=== PATIENT | male | born 1980 | race Caucasian/White ===

== ENCOUNTER 2016-10-16 13:33 | Emergency (ER) | payer OTHER ==
[2016-10-16] MEDS ORDERED: KETOROLAC 60 MG/2 ML VIAL IM STA (14:47)
--- NOTE | 2016-10-16 15:04 | ED ---
General Adult HPI - General Chief complaint: Extremity Injury, Lower Stated complaint: R leg pain Source: patient, RN notes reviewed Mode of arrival: ambulatory Limitations: no limitations - History of Present Illness Initial comments: Chief complaint and history of present illness this is a 36-year-old male who reports he has so sciatic type distribution pain to the right leg starting in the right hip area radiating up over the right thigh into the medial aspect of the right lower leg. Patient reports this pain started a day after he did very heavy lifting. He does have a history of ruptured disks in the past. He has a MRI scheduled by his family physician. He is on muscle relaxant steroid. He has not taken the pain medication i.e. codeine prescribed. - Related Data Home Medications Medication Instructions Recorded Confirmed Cyclobenzaprine HCl 10 mg PO HS 10/16/16 10/16/16 Ketorolac Tromethamine 10 mg PO Q6HR PRN 10/16/16 10/16/16 buPROPion HCL [Wellbutrin XL] 150 mg PO DAILY 10/16/16 10/16/16 methylPREDNISolone Dose Pack See Taper PO DIRECTED 10/16/16 10/16/16 [Medrol Dose Pack] Allergies Allergy/AdvReac Type Severity Reaction Status Date / Time Sulfa (Sulfonamide Allergy Swelling Verified 10/16/16 14:10 Antibiotics) Review of Systems ROS Statement: Those systems with pertinent positive or pertinent negative responses have been documented in the HPI. Review of systems no complaint of headache or visual acuity changes no neck pain or mid back pain minimal low back pain but he does have right-sided sciatic distribution discomfort. No trouble with bowels. Able to control urine and stool. Pain comes and goes acutely. All systems reviewed. Past medical problems significant for ruptured disc first noticed over 20 years ago. 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 The patient has no family history of cancer. The patient has ALLERGIES to sulfa. He does not smoke. Drinks alcohol socially. ROS Other: All systems not noted in ROS Statement are negative. Past Medical History Past Medical History: No Reported History History of Any Multi-Drug Resistant Organisms: None Reported Past Surgical History: Tonsillectomy Additional Past Surgical History / Comment(s): eye Past Psychological History: Depression Smoking Status: Never smoker Past Alcohol Use History: Rare Past Drug Use History: None Reported General Exam - General Exam Comments Initial Comments: General: The patient is awake and alert, complains of recurring on-again off-again sharp pain right sciatic distribution. Vital signs show temperature 97.0 pulse 105 respiratory rate 18 pulse ox on percent room air blood pressure 145/90. Eye: Pupils are equal, t, extra-ocular movements are intact; there is normal conjunctiva bilaterally. No signs of icterus. Neck: The neck is supple, there is no tenderness Cardiovascular: No chest pain or palpitations. Respiratory: No difficulty breathing no complaint of shortness of breath. No wheezing. Gastrointestinal: Normal appetite no abdominal pain no problems with urinating or bowel movements. Able to control both. Back: Mild lumbar area discomfort. Musculoskeletal: Pain from the right hip up over the right thigh to the medial aspect of the right leg. Pain comes and goes sometimes acute. Currently mild. Neurological: Sciatic distribution of L2 3 4 ,, areas of pain that become acute. No bruising. No pain with active and passive range of motion at this time. Skin: Skin is warm and dry and no rashes or lesions are noted. Limitations: no limitations Course Vital Signs 10/16/16 14:06 Temperature 97.0 F L Pulse Rate 105 H Respiratory 18 Rate Blood Pressure 145/90 O2 Sat by Pulse 100 Oximetry Medical Decision Making - Medical Decision Making Medical decision-making. The patient does have an appointment for follow-up with an MRI. Encouraged to do this. He has several days left on his steroids. He states he has muscle relaxant but he did not take his pain medication. In emergency room was given a shot of Toradol 60 IM did not want anything else at this time. He denied any problems with aspirin or asthma problems. The patient does have pain medication at home up to codeine type he was advised to take that. And follow-up family physician. Return emergency room as needed. He is not having any difficulty with urinating a bowel movement he has full control. There is no foot drop. I did discuss with him reasons to return emergency room. Disposition Clinical Impression: Lumbar radiculopathy, acute Disposition: HOME SELF-CARE Condition: Fair Instructions: Lumbar Radiculopathy (ED) Additional Instructions: Continue and complete all medications as prescribed by your doctor. Take pain medication he prescribed. Use ice alternating with heat and gentle stretching hot tub or hot showers as needed follow-up for your MRI as previously arranged. Return should gently difficulty with foot drop or inability to release her urinary release her stool. Referrals: Lazaro Colón MD [Primary Care Provider] - 1-2 days Time of Disposition: 15:04
[2016-10-16 15:25] VITALS: BP 138/82; PULSE 89; RESP 13; TEMP 98.2
== END 2016-10-16 15:37 | disposition home or self-care (01) ==
LOC: EC 13:33
DX: M54.16 Radiculopathy, lumbar region (principal); F32.9 Major depressive disorder, single episode, unspecified; Z88.2 Allergy status to sulfonamides; Z79.899 Other long term (current) drug therapy
CPT/HCPCS: 99282; 96372; J1885

== ENCOUNTER → 2016-10-23 | Outpatient (CLI) | payer OTHER ==
--- NOTE | 2016-10-23 12:32 | MR ---
EXAMINATION TYPE: MR lumbar spine wo con DATE OF EXAM: 10/23/2016 11:55 AM COMPARISON: NONE HISTORY: Lumbago with sciatica, right side Multiplanar, MultiSpin echo imaging of the lumbar spine was performed. L1-L2: Normal disc appearance without desiccation. No herniation, protrusion or disc bulging. No ca nal stenosis is present. Foramina are patent bilaterally. L2-L3: Mild to moderate disc desiccation noted. Posterior disc bulge without disc herniation protrus ion or central stenosis. Foramina are patent bilaterally. L3-L4: Mild to moderate disc desiccation noted. . Posterior disc bulge without disc herniation protru gonzález or central stenosis. Foramina are patent bilaterally. L4-L5: Mild to moderate disc desiccation noted. Far lateral into the right disc herniation at the lev el of the neural foramen with severe foraminal encroachment . No evidence for central stenosis. L5-S1: Moderate disc desiccation. Left paracentral subligamentous disc herniation mildly effaces the ventral thecal sac. No evidence for central stenosis or lateral recess stenosis. Lumbar segments are intact. No paraspinal masses are identified. Conus medullaris has a normal appe arance. IMPRESSION: 1. Far lateral and to the right disc herniation at L4-5 strategically situated at the level of the ne ural foramen with severe narrowing identified. 2. Subligamentous disc herniation at L5-S1.
== END | disposition home or self-care (01) ==
LOC: RADMRIMAIN 11:02
PROVIDERS: ATTEND Family Medicine
DX: M99.73 Connective tissue and disc stenosis of intervertebral foramina of lumbar region (principal); M51.17 Intervertebral disc disorders with radiculopathy, lumbosacral region
CPT/HCPCS: 72148

== ENCOUNTER → 2020-06-14 | Outpatient (CLI) | payer BC ==
--- NOTE | 2020-06-14 12:06 | CT ---
EXAMINATION TYPE: CT abdomen pelvis w con DATE OF EXAM: 06/14/2020 COMPARISON: None HISTORY: Diverticulitis of large intestines with perforation, bowel resection [address] DLP: 1165.9 mGycm CONTRAST: CT scan of the abdomen and pelvis is performed with Oral Contrast and with IV Contrast, patient injec monet with 100 mL of Isovue 300. FINDINGS: LUNG BASES-: No visible nodule. No infiltrate. LIVER/GB: No calcified gallstones. No space occupying hepatic lesion. Biliary tree is of normal ca liber. PANCREAS: No inflammation. No distinct mass. SPLEEN: No splenic enlargement. No lesion seen. ADRENALS: No nodule. No thickening. KIDNEYS/BLADDER: No hydronephrosis. Nonobstructing calculus lower pole left kidney measuring 4 mm. N o distinct renal mass. Urinary bladder grossly unremarkable. BOWEL: Normal appendix. Postsurgical changes about the sigmoid colon with anastomosis seen. No active inflammatory process appreciated. No evidence for leak or abscess. Postsurgical changes about the lo w anterior abdominal wall. No evidence for pneumoperitoneum. GENITAL ORGANS: No gross abnormality. LYMPH NODES: No greater than 1cm abdominal or pelvic lymph nodes are appreciated. AORTA: No significant abnormality. OSSEOUS STRUCTURES: No significant abnormality is seen. OTHER: No significant additional abnormality is seen. IMPRESSION: 1. Postsurgical changes about the sigmoid colon with anastomosis seen. No active inflammatory process appreciated. No evidence for leak or abscess.
== END | disposition home or self-care (01) ==
LOC: RADCTMAIN 09:57
PROVIDERS: ATTEND Physician Assistant
DX: K57.20 Diverticulitis of large intestine with perforation and abscess without bleeding (principal); Z98.890 Other specified postprocedural states
CPT/HCPCS: 74177; Q9967

== ENCOUNTER → 2021-01-18 | Outpatient (CLI) | payer BC ==
[~2021-01-18] MED LIST: CASIRIVIMAB (REGN10933) (EUA) 600 MG, IMDEVIMAB (REGN10987) (EUA) 600 MG in SODIUM CHLO... IVPB ONE; SODIUM CHLORIDE 0.9% 50 ML IVPB ONE; SODIUM CHLORIDE 0.9% 500 ML 500 ML in EMPTY BAG 1 BAG IV PRN
[2021-01-18 14:29] VITALS: RESP 16
[2021-01-18 15:31] VITALS: BP 127/88; PULSE 82; TEMP 98.6
== END ==
LOC: PROCWHC3 13:20
PROVIDERS: ATTEND Family Medicine
DX: U07.1 COVID-19 (principal); E66.9 Obesity, unspecified; Z68.34 Body mass index [BMI] 34.0-34.9, adult; Z88.2 Allergy status to sulfonamides
CPT/HCPCS: 96360; Q0243; M0243; 96367

== ENCOUNTER 2021-10-08 14:37 | Emergency (ER) | payer BC ==
[2021-10-08 14:46] VITALS: TEMP 97.6
[2021-10-08] MEDS ORDERED: SODIUM CHLORIDE 0.9% 1,000 ML IV STA (14:53)
[2021-10-08 15:18] LABS: ALT 28 U/L (4-49); AST 28 U/L (17-59); African American GFR (CKD) >90 (>60 ml/min/1.73 sqM); Albumin 4.3 g/dL (3.5-5.0); Alkaline Phosphatase 75 U/L (38-126); Anion Gap 8 mmol/L; Blood Urea Nitrogen 20 mg/dL (9-20); Calcium 9.4 mg/dL (8.4-10.2); Carbon Dioxide 24 mmol/L (22-30); Chloride 104 mmol/L (98-107); Glucose 95 mg/dL (74-99); Non-African American GFR(CKD) >90 (>60 ml/min/1.73 sqM); Potassium 3.8 mmol/L (3.5-5.1); Sodium 136 mmol/L (137-145); Total Bilirubin 0.5 mg/dL (0.2-1.3); Total Protein 6.7 g/dL (6.3-8.2)
[2021-10-08 15:23] LABS: Basophils % (A) 0 %; Eosinophils # (A) 0.2 k/uL (0-0.7); Eosinophils % (A) 3 %; HCT 41.5 % (39.0-53.0); HGB 14.8 gm/dL (13.0-17.5); Lymphocytes # (A) 1.5 k/uL (1.0-4.8); Lymphocytes % (A) 24 %; MCH 31.5 pg (25.0-35.0); MCHC 35.6 g/dL (31.0-37.0); MCV 88.5 fL (80.0-100.0); Mean Platelet Volume 9.1; Monocytes # (A) 0.3 k/uL (0-1.0); Monocytes % (A) 6 %; Neutrophils # (A) 3.9 k/uL (1.3-7.7); Neutrophils % (A) 65 %; Platelet Count 177 k/uL (150-450); RBC 4.69 m/uL (4.30-5.90); RDW 12.7 % (11.5-15.5)
[2021-10-08 15:31] LABS: Prothrombin Time 10.5 sec (9.0-12.0)
[2021-10-08 15:47] LABS: Partial Thromboplastin Time 21.2 sec (22.0-30.0)
[2021-10-08] MEDS ORDERED: MECLIZINE 12.5 MG TAB PO STA (15:59)
--- NOTE | 2021-10-08 15:59 | XR ---
EXAMINATION TYPE: XR chest 2V DATE OF EXAM: 10/08/2021 COMPARISON: NONE HISTORY: Syncope TECHNIQUE: FINDINGS: Heart and mediastinum are normal. Lungs are clear. Diaphragm is normal. Bony thorax is norm al. IMPRESSION: Normal chest.
--- NOTE | 2021-10-08 16:00 | ED ---
General Adult HPI - General Chief complaint: Syncope Stated complaint: syncope Time Seen by Provider: 10/08/21 14:40 Source: patient, EMS Mode of arrival: EMS Limitations: no limitations - History of Present Illness Initial comments: 41-year-old male with past history of vasovagal syncope, Pots disease diagnosed years ago presents the emergency room for presyncope. States that he was driving for approximate 4 hours when he began feeling extremely lightheaded. He switched with someone else [facility] so that he was not driving. As soon as he made it home he states he jumped out of the car and had an episode of vomiting. Has numbness in his bilateral upper extremities. States that his symptoms of room spinning or worse with positional changes. He remains in bed with his eyes closed flank flat. States that he has had several episodes throughout his lifetime or he has passed out. Has had extensive workup and had a positive tilt table test. Patient denies any chest pain or shortness of breath. No abdominal pain. Did not take any medications for her symptoms prior to coming in. No headaches. No other alleviating, precipitating or modifying factors - Related Data Home Medications Medication Instructions Recorded Confirmed buPROPion HCL [Wellbutrin XL] 150 mg PO DAILY 10/16/16 10/08/21 Desvenlafaxine Succinate 25 mg PO DAILY 10/08/21 10/08/21 [Desvenlafaxine Succinate ER] Ibuprofen [Motrin Ib] 600 mg PO Q8H PRN 10/08/21 10/08/21 Previous Rx's Medication Instructions Recorded Meclizine [Antivert] 25 mg PO TID PRN #15 tab 10/08/21 Ondansetron Odt [Zofran Odt] 4 mg PO Q8HR PRN #15 tab 10/08/21 Allergies Allergy/AdvReac Type Severity Reaction Status Date / Time Sulfa (Sulfonamide Allergy Swelling Verified 10/08/21 18:21 Antibiotics) Review of Systems ROS Statement: Those systems with pertinent positive or pertinent negative responses have been documented in the HPI. ROS Other: All systems not noted in ROS Statement are negative. Past Medical History Past Medical History: No Reported History History of Any Multi-Drug Resistant Organisms: None Reported Past Surgical History: Tonsillectomy Additional Past Surgical History / Comment(s): eye Past Psychological History: Depression Smoking Status: Never smoker Past Alcohol Use History: Rare Past Drug Use History: None Reported General Exam Limitations: no limitations General appearance: alert, in no apparent distress Head exam: Present: atraumatic, normocephalic, normal inspection Eye exam: Present: normal appearance, PERRL, EOMI, nystagmus (horizontal). Absent: scleral icterus, conjunctival injection, periorbital swelling ENT exam: Present: normal exam, mucous membranes moist Neck exam: Present: normal inspection. Absent: tenderness, meningismus, lymphadenopathy Respiratory exam: Present: normal lung sounds bilaterally. Absent: respiratory distress, wheezes, rales, rhonchi, stridor Cardiovascular Exam: Present: regular rate, normal rhythm, normal heart sounds. Absent: systolic murmur, diastolic murmur, rubs, gallop, clicks GI/Abdominal exam: Present: soft, normal bowel sounds. Absent: distended, tenderness, guarding, rebound, rigid Extremities exam: Present: normal inspection, full ROM, normal capillary refill. Absent: tenderness, pedal edema, joint swelling, calf tenderness Back exam: Present: normal inspection Neurological exam: Present: alert, oriented X3, CN II-XII intact Psychiatric exam: Present: normal affect, normal mood Skin exam: Present: warm, dry, intact, normal color. Absent: rash Course Vital Signs 10/08/21 10/08/21 10/08/21 14:38 16:17 20:10 Temperature 97.6 F Pulse Rate 78 71 60 Respiratory 16 16 18 Rate Blood Pressure 126/70 114/62 129/84 O2 Sat by Pulse 99 98 97 Oximetry - Reevaluation(s) Reevaluation #1: 10/08/21 17:14 Patient reevaluated and continues to be nauseated with inability to sit up EKG Findings - EKG Comments: EKG Findings:: EKG demonstrates sinus rhythm with a rate of 76. GA interval 146. QRS 106. QTC of 414. No acute ST segment elevations or depressions Medical Decision Making - Medical Decision Making The patient was placed into room 7. A thorough history and physical exam is performed. IV access is established laboratory studies were conducted. Patient was given a liter bolus normal saline and 25 mg of meclizine. I reviewed the patient's laboratory studies. He is sent for a chest x-ray and a CT of his brain which demonstrates no acute process. Patient does not have any improve ment in his symptoms and therefore he is given 5 mg of Valium. Patient is unable to get up and ambulate around the emergency department without difficulty. No continuation of his vertigo. I did discuss the diagnosis, differential and treatment options. Patient wishes to go home at this time. Wi ll be given a prescription for Zofran starter pack and meclizine. Instructed to take the medications as directed. Did recommend cardiology and ENT follow-up. Return for any new or worsening symptoms. Patient agreed he was discharged home situation - Lab Data Result diagrams: 10/08/21 14:55 10/08/21 14:55 Lab Results 10/08/21 10/08/21 10/08/21 Range/Units 14:55 14:55 14:55 WBC 6.0 (3.8-10.6) k/uL RBC 4.69 (4.30-5.90) m/uL Hgb 14.8 (13.0-17.5) gm/dL Hct 41.5 (39.0-53.0) % MCV 88.5 (80.0-100.0) fL MCH 31.5 (25.0-35.0) pg MCHC 35.6 (31.0-37.0) g/dL RDW 12.7 (11.5-15.5) % Plt Count 177 (150-450) k/uL MPV 9.1 Neutrophils % 65 % Lymphocytes % 24 % Monocytes % 6 % Eosinophils % 3 % Basophils % 0 % Neutrophils # 3.9 (1.3-7.7) k/uL Lymphocytes # 1.5 (1.0-4.8) k/uL Monocytes # 0.3 (0-1.0) k/uL Eosinophils # 0.2 (0-0.7) k/uL Basophils # 0.0 (0-0.2) k/uL PT 10.5 (9.0-12.0) sec INR 1.0 (<1.2) APTT 21.2 L (22.0-30.0) sec D-Dimer 0.27 (<0.60) mg/L FEU Sodium 136 L (137-145) mmol/L Potassium 3.8 (3.5-5.1) mmol/L Chloride 104 (98-107) mmol/L Carbon Dioxide 24 (22-30) mmol/L Anion Gap 8 mmol/L BUN 20 (9-20) mg/dL Creatinine 0.90 (0.66-1.25) mg/dL Est GFR (CKD-EPI)AfAm >90 (>60 ml/min/1.73 sqM) Est GFR (CKD-EPI)NonAf >90 (>60 ml/min/1.73 sqM) Glucose 95 (74-99) mg/dL Calcium 9.4 (8.4-10.2) mg/dL Total Bilirubin 0.5 (0.2-1.3) mg/dL AST 28 (17-59) U/L ALT 28 (4-49) U/L Alkaline Phosphatase 75 (38-126) U/L Troponin I (0.000-0.034) ng/mL Total Protein 6.7 (6.3-8.2) g/dL Albumin 4.3 (3.5-5.0) g/dL Urine Color Urine Appearance (Clear) Urine pH (5.0-8.0) Ur Specific [place] (1.001-1.035) Urine Protein (Negative) Urine Glucose (UA) (Negative) Urine Ketones (Negative) Urine Blood (Negative) Urine Nitrite (Negative) Urine Bilirubin (Negative) Urine Urobilinogen (<2.0) mg/dL Ur Leukocyte Esterase (Negative) 10/08/21 10/08/21 Range/Units 14:55 17:15 WBC (3.8-10.6) k/uL RBC (4.30-5.90) m/uL Hgb (13.0-17.5) gm/dL Hct (39.0-53.0) % MCV (80.0-100.0) fL MCH (25.0-35.0) pg MCHC (31.0-37.0) g/dL RDW (11.5-15.5) % Plt Count (150-450) k/uL MPV Neutrophils % % Lymphocytes % % Monocytes % % Eosinophils % % Basophils % % Neutrophils # (1.3-7.7) k/uL Lymphocytes # (1.0-4.8) k/uL Monocytes # (0-1.0) k/uL Eosinophils # (0-0.7) k/uL Basophils # (0-0.2) k/uL PT (9.0-12.0) sec INR (<1.2) APTT (22.0-30.0) sec D-Dimer (<0.60) mg/L FEU Sodium (137-145) mmol/L Potassium (3.5-5.1) mmol/L Chloride (98-107) mmol/L Carbon Dioxide (22-30) mmol/L Anion Gap mmol/L BUN (9-20) mg/dL Creatinine (0.66-1.25) mg/dL Est GFR (CKD-EPI)AfAm (>60 ml/min/1.73 sqM) Est GFR (CKD-EPI)NonAf (>60 ml/min/1.73 sqM) Glucose (74-99) mg/dL Calcium (8.4-10.2) mg/dL Total Bilirubin (0.2-1.3) mg/dL AST (17-59) U/L ALT (4-49) U/L Alkaline Phosphatase (38-126) U/L Troponin I <0.012 (0.000-0.034) ng/mL Total Protein (6.3-8.2) g/dL Albumin (3.5-5.0) g/dL Urine Color Yellow Urine Appearance Clear (Clear) Urine pH 8.0 (5.0-8.0) Ur Specific [place] 1.025 (1.001-1.035) Urine Protein Trace H (Negative) Urine Glucose (UA) Negative (Negative) Urine Ketones Negative (Negative) Urine Blood Negative (Negative) Urine Nitrite Negative (Negative) Urine Bilirubin Negative (Negative) Urine Urobilinogen <2.0 (<2.0) mg/dL Ur Leukocyte Esterase Negative (Negative) Disposition Clinical Impression: Vertigo Disposition: HOME SELF-CARE Condition: Stable Instructions (If sedation given, give patient instructions): Vertigo (ED) Additional Instructions: Take the Zofran as needed for nausea. Take the meclizine as needed for dizziness. Follow-up with ENT and cardiology. Return for any new or worsening symptoms. Speak with your primary care doctor about discontinuing the Pristiq. Prescriptions: Meclizine [Antivert] 25 mg PO TID PRN #15 tab PRN Reason: Vertigo Ondansetron Odt [Zofran Odt] 4 mg PO Q8HR PRN #15 tab PRN Reason: Nausea Is patient prescribed a controlled substance at d/c from ED?: No Referrals: Laazro Colón MD [Primary Care Provider] - 1-2 days David Coto DO [Doctor of Osteopathic Medicine] - 1-2 days Omar Franks MD [STAFF PHYSICIAN] - 1-2 days Time of Disposition: 19:41
--- NOTE | 2021-10-08 16:35 | CT ---
EXAMINATION TYPE: CT brain wo con DATE OF EXAM: 10/08/2021 COMPARISON: None HISTORY: dizziness, nausea, vertigo CT DLP: 1162.4 mGycm Automated exposure control for dose reduction was used. Images obtained of the brain with no contrast. Ventricles have normal size. There is no mass effect or midline shift. No sign of intracranial hemorr chris. Calvarium is intact. There is normal aeration of the mastoid sinuses. Skull base is intact. IMPRESSION: Normal unenhanced head CT scan.
[2021-10-08] MEDS ORDERED: diazePAM 5 MG/ML 1 ML VIAL IVP STA (17:16)
[2021-10-08 17:26] LABS: Appearance,Urine Clear (Clear); Bilirubin,Urine Negative (Negative); Blood,Urine Negative (Negative); Color,Urine Yellow; Glucose,Urine (UA) Negative (Negative); Ketones,Urine Negative (Negative); Leukocyte Esterase,Urine Negative (Negative); Nitrite,Urine Negative (Negative); Protein,Urine Trace (Negative); Specific Gravity,Urine 1.025 (1.001-1.035); Urobilinogen,Urine <2.0 mg/dL (<2.0)
[2021-10-08] MEDS ORDERED: ONDANSETRON 4 MG ODT STARTER PACK 2 TAB BTL PO STA (19:38)
[2021-10-08 20:12] VITALS: BP 129/84; PULSE 60; RESP 18
== END 2021-10-08 20:00 | disposition home or self-care (01) ==
LOC: EC 14:37
DX: R55 Syncope and collapse (principal); Z88.2 Allergy status to sulfonamides
CPT/HCPCS: 36415; 93005; 85379; 80053; 84484; 85025; 85610; 85730; 81003; 71046; 70450; 99284; 96374; 96361; S0119; J3360

== ENCOUNTER → 2023-12-14 | Outpatient (CLI) | payer BC ==
[2023-12-14 23:15] LABS: Basophils # (A) 0.06 X 10*3/uL (0.00-0.10); Eosinophils # (A) 0.05 X 10*3/uL (0.04-0.35); Eosinophils % (A) 0.8 %; HCT 45.5 % (39.6-50.0); HGB 15.1 g/dL (13.0-17.0); Lymphocytes # (A) 1.75 X 10*3/uL (0.90-5.00); Lymphocytes % (A) 29.4 %; MCHC 33.2 g/dL (32.0-37.0); MCV 90.5 FL (80.0-97.0); Mean Platelet Volume 11.4 FL (9.5-12.2); Monocytes # (A) 0.33 X 10*3/uL (0.20-1.00); Monocytes % (A) 5.5 %; NRBC Per 100 WBC 0 X 10*3/uL (0.00-0.01); Neutrophils # (A) 3.75 X 10*3/uL (1.80-7.70); Neutrophils % (A) 63.1 %; Platelet Count 202 X 10*3/uL (140-440); RBC 5.03 X 10*6/uL (4.40-5.60); RDW 12.2 % (11.5-14.5); WBC 5.95 X 10*3/uL (4.50-10.00)
[2023-12-14 23:27] LABS: Erythrocyte Sedimentation Rate 4 mm/Hr (0-15)
[2023-12-14 23:35] LABS: Streptolysin O Ab(ASO) <20 IntlUnit/L (0-200)
[2023-12-14 23:46] LABS: Chol/HDL Ratio 4.47 Ratio; Creatine Kinase 84 U/L (35-257); Rheumatoid Factor, Qnt <15 IU/mL (0-15); Uric Acid 4.9 mg/dL (3.7-8.7)
[2023-12-14 23:47] LABS: ALT 34 U/L (10-49); AST 24 U/L (14-35); Albumin 4.3 g/dL (3.8-4.9); Albumin/Globulin Ratio 1.79 Ratio (1.60-3.17); Alkaline Phosphatase 82 U/L (41-126); Blood Urea Nitrogen 18.7 mg/dL (9.0-27.0); Calcium 9.4 mg/dL (8.7-10.3); Carbon Dioxide 27.1 mmol/L (21.6-31.8); Chloride 103 mmol/L (96-109); Globulin 2.4 g/dL (1.6-3.3); Glucose 90 mg/dL (70-110); Potassium 4.6 mmol/L (3.5-5.5); Sodium 140 mmol/L (135-145); Total Bilirubin 0.4 mg/dL (0.3-1.2); Total Protein 6.7 g/dL (6.2-8.2)
== END | disposition home or self-care (01) ==
LOC: LABWHC1 10:36
PROVIDERS: ATTEND Family Medicine
DX: Z13.220 Encounter for screening for lipoid disorders (principal); Z13.1 Encounter for screening for diabetes mellitus; M79.10 Myalgia, unspecified site
CPT/HCPCS: 36415; 80053; 80061; 82306; 82550; 83036; 84550; 85025; 85652; 86038; 86060; 86141; 86431